=== PATIENT | male | born 1995 | race Caucasian/White ===

== ENCOUNTER 2019-02-10 12:31 | Emergency (ER) | payer MEDICAID ==
[~2019-02-10] VITALS: Ht 175.3 cm; Wt 86.4 kg
[2019-02-10 13:41] LABS: BASOPHILS % (AUTO) 0.7 % (0-1); EOSINOPHILS # (AUTO) 0.1 X10'3 (0-0.9); EOSINOPHILS % (AUTO) 2.4 % (0-6); HEMATOCRIT 42.1 % (42.0-52.0); LYMPHOCYTES # (AUTO) 1.9 X10'3 (1.1-4.8); LYMPHOCYTES % (AUTO) 30.8 % (21-51); MEAN CORPUSCULAR HEMOGLOBIN 27.7 PG (27.0-31.0); MEAN CORPUSCULAR HGB CONC 33.2 g/dL (33.0-36.5); MEAN CORPUSCULAR VOLUME 83.6 FL (78-98); MEAN PLATELET VOLUME 7.5 FL (7.4-10.4); MONOCYTES # (AUTO) 0.7 X10'3 (0-0.9); NEUTROPHILS # (AUTO) 3.4 X10'3 (1.8-7.7); NEUTROPHILS % (AUTO) 55.1 % (42-75); PLATELET COUNT 281 X10'3 (140-440); RED BLOOD COUNT 5.04 X10'6 (4.70-6.10); RED CELL DISTRIBUTION WIDTH 15.3 % (11.5-14.5); WHITE BLOOD COUNT 6.2 X10'3 (4.5-11.0)
[2019-02-10 13:58] LABS: ALANINE AMINOTRANSFERASE 85 U/L (12-78); ALBUMIN 3.7 G/DL (3.4-5.0); ALBUMIN/GLOBULIN RATIO 0.8 (1.1-1.5); ALKALINE PHOSPHATASE 205 IU/L (46-116); ANION GAP 7 (8-16); ASPARTATE AMINO TRANSFERASE 41 U/L (10-37); BILIRUBIN,TOTAL 0.7 MG/DL (0.1-1.0); BLOOD UREA NITROGEN 7 MG/DL (7-18); BUN/CREATININE RATIO 7.4 (5.4-32.0); CHLORIDE 106 MMOL/L (99-107); CREATININE 0.94 MG/DL (0.60-1.10); GLUCOSE 82 MG/DL (70-104); POTASSIUM 4.1 MMOL/L (3.5-5.1); SODIUM 142 MMOL/L (135-145); TOTAL CARBON DIOXIDE 29.2 MMOL/L (24-32); TOTAL PROTEIN 8.5 G/DL (6.4-8.2); eGFR > 90 ML/MIN
[2019-02-10] MEDS ORDERED: meclizine 12.5mg tablet PO ONE (14:35)
[2019-02-10] MEDS ORDERED: MECL-111 PO (14:42)
[2019-02-10 14:57] VITALS: BP 132/71
== END 2019-02-10 14:58 | disposition home or self-care (01) ==
LOC: ER 12:32
DX: R42 Dizziness and giddiness (principal); J34.89 Other specified disorders of nose and nasal sinuses; R79.89 Other specified abnormal findings of blood chemistry; R51 Headache; R79.1 Abnormal coagulation profile; Z88.2 Allergy status to sulfonamides; Z79.899 Other long term (current) drug therapy
CPT/HCPCS: 36415; 80053; 85025; 85610; 93005; 99284; J8597